=== PATIENT | female | born 2000 | race Caucasian/White ===

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

== ENCOUNTER 2023-05-22 13:07 | Observation (INO) | payer BC, SELFPAY ==
[2023-05-22] VITALS (9 sets, daily range): BP systolic 87–111; BP diastolic 51–69; PULSE 77–121; BMI 40.9
[2023-05-22 14:10] LABS: Appearance Urine Clear (Clear); Bilirubin Urine Negative (Negative); Blood Urine Negative (Negative); Color Urine Yellow (Yellow); Glucose Urine UA Negative (Negative); Ketones Urine Negative (Negative); Leukocyte Esterase Ur Negative LEU/UL (Negative); Nitrate Urine Negative (Negative); Protein Urine Negative (Negative); Specific Grav Ur 1.014 (1.001-1.035); Urobilinogen Urine 0.2 mg/dL (<2.0)
[2023-05-22 14:13] LABS: Add Urine Microscopic? NO
[2023-05-22] MEDS: ONDANSETRON HCL ODT 4 MG TABLET PO (16:12)
[2023-05-22] MEDS: METOCLOPRAMIDE HCL INJ 10 MG/2 ML VIAL IV PUSH (18:09)
[2023-05-22] MEDS: ACETAMINOPHEN 500 MG TABLET 1000 MG PO (18:30)
--- NOTE | 2023-05-25 12:17 | PM.OBTRLD ---
OB - Triage/Final Diagnosis Visit Information Comments/Additional reasons for admission: I have assessed the risk for this patient, Dee Dee Saha, and determined that she would benefit from observation care. Evaluation Laboratory results: Laboratory Tests 05/22/23 13:59 Urine Color Yellow Urine Appearance Clear Urine pH 8.0 Ur Specific [place] 1.014 Urine Protein Negative Urine Glucose (UA) Negative Urine Ketones Negative Ur Blood (Man) Negative Urine Nitrate Negative Urine Bilirubin Negative Urine Urobilinogen 0.2 Leukocyte Esterase Rfl Negative Final Diagnosis (1) Abdominal pain affecting : Code(s): O26.899 - Other specified related conditions, unspecified trimester; R10.9 - Unspecified abdominal pain Status: Acute
--- NOTE | 2023-05-25 12:18 | PM.IMHP ---
H&P: HPI History of Present Illness Date/Time: 05/25/23 12:18 Chief Complaint: nausea and vomiting, abdominal pain Narrative: Patient presents for evaluation of abdominal pain, nausea and vomiting for the last 2 weeks, worsening today. Reports constant lower abdominal pain, no radiation. Denies dysuria, hematuria, diarrhea, constipation. Nausea is worsened from baseline. No contractions, LOF, VB. No other sick contacts. Good movement. Review of Systems Review of Systems: All systems reviewed & are unremarkable except as noted in HPI and below Meds Home Medications and Allergies Home Medications Medication Instructions Recorded Confirmed Type levothyroxine 25 mcg tablet 25 mcg PO DAILY 05/22/23 05/22/23 History metoclopramide HCl 10 mg tablet 10 mg PO Q6H PRN Nausea 05/22/23 05/22/23 History (Reglan) vit no.95-ferrous 1 tablet PO DAILY 05/22/23 05/22/23 History fumarate 28 mg-folic acid 800 mcg tablet () Allergies Allergy/AdvReac Type Severity Reaction Status Date / Time No Known Allergies Allergy Verified 05/22/23 16:09 Exam Const: General: comfortable and no acute distress HENMT: Mouth: Yes moist mucous membranes GI: GI Palp: Yes Soft to palpation Other: nontender, nondistended, gravid Assessment and Plan Assessment and plan (1) Abdominal pain affecting : Code(s): O26.899 - Other specified related conditions, unspecified trimester; R10.9 - Unspecified abdominal pain Status: Acute Plan will order IV antiemetics, IV fluids and monitor response. No evidence of contractions on monitor. NST reactive.
== END 2023-05-22 19:30 | disposition home or self-care (01) ==
PROVIDERS: Admitting Provider Obstetrics & Gynecology; Visit Provider Obstetrics & Gynecology
DX: O26.892 Other specified pregnancy related conditions, second trimester (principal); R10.9 Unspecified abdominal pain; Z3A.29 29 weeks gestation of pregnancy
CPT/HCPCS: 81003; 96374; A9270; G0378; G0379; J2765